=== PATIENT | male | born 1960 | race Caucasian/White ===

== ENCOUNTER 2019-03-20 09:47 | Day surgery (SDC) | payer BC ==
[2019-03-19 08:09] VITALS: BMI 26.6
--- NOTE | 2019-03-19 11:22 | HP ---
HISTORY OF PRESENT ILLNESS: This is a 58-year-old male, comes for a colonoscopy for colon cancer screening. The patient has family history of colon cancer. His was diagnosed with colon cancer a year ago. The patient has had mild hematochezia off and on. The bleeding appears to be from the hemorrhoids. The patient has no other relevant history. ALLERGIES: AMBIEN. SOCIAL HISTORY: The patient does not smoke, but he drinks alcohol socially. MEDICAL ILLNESSES: None except for; 1. Hernia repair. 2. Right hydrocele repair. 4. Allergic rhinitis. PHYSICAL EXAMINATION: VITAL SIGNS: Pulse is 70, blood pressure 130/70. HEENT: Conjunctivae are clear. CARDIOVASCULAR: First and second heart sounds are normal. LUNGS: Clear to auscultation. ABDOMEN: Soft. No organomegaly. No tenderness. No masses. ADMITTING DIAGNOSIS: A 58-year-old male, comes for a colonoscopy for colon cancer screening. Job ID: [id number] MTDD
[2019-03-20] MEDS ORDERED: Midazolam HCl 2 mg/2 ml Vial ONE (11:03)
--- NOTE | 2019-03-20 17:15 | OP ---
DATE OF PROCEDURE: 03/20/2019 OPERATIVE PROCEDURE: Colonoscopy. PREOPERATIVE DIAGNOSIS: A 58-year-old male, undergoing colonoscopy for colon cancer screening. POSTOPERATIVE DIAGNOSIS: 1. Sigmoid diverticular disease. 2. Hemorrhoids. DESCRIPTION OF PROCEDURE: The patient was placed on his left lateral position and was given sedation by Anesthesia Department. The rectal exam was done before the scope was advanced into the rectum. No lesions felt on rectal exam. A [employer] video colonoscope was introduced into the rectum and advanced all the way to the cecum. The prep was excellent. The mucosa appears normal throughout the colon with normal vascular pattern. In the appendiceal orifice, ileocecal valve, and cecum, no pathology seen. Withdrawal of scope in the cecum to ascending colon, hepatic flexure, no pathology seen. In the transverse colon, splenic flexure, descending colon, no pathology. The sigmoid colon shows diffuse diverticular disease. Rectal hemorrhoids. DISCHARGE PLANNING: This is a 58-year-old male, came for a colonoscopy for colon cancer screening. The colonoscopy showed scattered sigmoid diverticula and also hemorrhoids. DISCHARGE RECOMMENDATION: 1. The patient advised to call me if he develops abdominal pain, hematochezia. 2. High-fiber diet. 3. Metamucil once a day. 4. Repeat colonoscopy in 5 years because of family history of colon cancer. Job ID: [id number]
== END 2019-03-20 13:13 | disposition home or self-care (01) ==
LOC: SDC 09:47
PROVIDERS: ATTEND Internal Medicine Gastroenterology
PROC: 0DJD8ZZ Inspection of Lower Intestinal Tract, Via Natural or Artificial Opening Endoscopic (ICD-10-PCS; principal; 2019-03-20)
DX: Z12.11 Encounter for screening for malignant neoplasm of colon (principal); K57.30 Diverticulosis of large intestine without perforation or abscess without bleeding; K64.9 Unspecified hemorrhoids; Z80.0 Family history of malignant neoplasm of digestive organs; Z88.8 Allergy status to other drugs, medicaments and biological substances
CPT/HCPCS: J2250

== ENCOUNTER 2020-08-12 10:12 | Outpatient (CLI) | payer BC ==
--- NOTE | 2020-08-12 10:30 | RAD ---
XR Knee Lt 3 View HISTORY: Left knee pain FINDINGS: No fracture or dislocation is identified.
== END 2020-08-12 10:13 | disposition home or self-care (01) ==
LOC: SCSRAD 10:12
PROVIDERS: ATTEND Nurse Practitioner Family
DX: M25.562 Pain in left knee (principal)

== ENCOUNTER 2020-09-30 17:30 | Outpatient (CLI) | payer BC | END 2020-09-30 17:31 | disposition home or self-care (01) | LOC: SLEEPLAB 17:30 | PROVIDERS: ATTEND Family Medicine | DX: G47.33 Obstructive sleep apnea (adult) (pediatric) (principal); R53.83 Other fatigue; G47.00 Insomnia, unspecified; R06.83 Snoring; E11.9 Type 2 diabetes mellitus without complications | CPT/HCPCS: 95806 ==